=== PATIENT | female | born 1930 | race Caucasian/White ===

== ENCOUNTER → 2016-06-01 11:25 | Outpatient (CLI) | payer MEDICARE, BC ==
[2016-01-11 15:00] VITALS: BMI 26.4
[~2016-06-01 11:25] MED LIST: ASPIRIN EC81 M1 PO; CEFTIN500 MG PO; EZFE 200200 MG PO; FISH OIL 1,0001 CA1 PO; IPRAT-ALBUT 0.5-3 ML UPD; LEVOTHROID75 MCG PO; LISINOPRIL5 MG PO; LOPRESSOR50 MG PO; MEDROL DOSE PACK4 MG PO; OMNICEF300 MG PO; PLAVIX75 MG PO; PROTONIX40 MG PO; SINGULAIR10 MG PO; SLOW-MAG 64 MG64 MG PO; STOOL SOFTENER240 MG PO; VITAMIN B-12250 MC3 PO; VITAMIN B-1250 MG PO; VITAMIN D2000 UNIT PO; VITAMIN D3400 UNI1; ZANTAC150 MG PO; ZYRTEC10 M1 PO
== END | disposition home or self-care (01) ==
LOC: D.RAD 11:15
DX: J44.9 Chronic obstructive pulmonary disease, unspecified (principal)

== ENCOUNTER 2016-10-11 10:06 | Emergency (ER) | payer MEDICARE, BC ==
[2016-01-11 15:00] VITALS: BMI 26.4
== END 2016-10-11 13:22 | disposition home or self-care (01) ==
LOC: D.ER 10:06
DX: S09.90XA Unspecified injury of head, initial encounter (principal); W19.XXXA Unspecified fall, initial encounter; Y93.89 Activity, other specified; Y92.22 Religious institution as the place of occurrence of the external cause; I10 Essential (primary) hypertension

== ENCOUNTER 2016-12-17 22:21 | Inpatient (IN) | payer MEDICARE, BC ==
[~2016-12-17] VITALS: Ht 157.5 cm; Wt 62.6 kg
[2016-12-17 23:07] LABS: BASOPHILS 0.2 % (0-2); EOSINOPHILS 0.7 % (0-7); HEMATOCRIT 37.4 % (36.0-48.0); HEMOGLOBIN 11.8 g/dL (12-16); IMMATURE GRANULOCYTES 0.6 % (0-5); LYMPHOCYTES 17.5 % (15-50); MCH 30.8 pg (26.0-34.0); MCHC 31.6 g/dL (31.0-37.0); MCV 97.7 fL (80.0-100.0); MEAN PLATELET VOLUME 9.9 fL (7.4-10.4); MONOCYTES 7.5 % (2-11); NEUTROPHILS 73.5 % (40-80); PLATELET COUNT 202 10x3/uL (130-400); RBC 3.83 10x6/uL (4.00-5.40); RDW 14.1 % (11.5-14.5); WBC 10.4 10x3/uL (4.8-10.8)
[2016-12-17 23:24] LABS: ALBUMIN 3.5 g/dL (3.4-5.0); ALKALINE PHOSPHATASE 181 U/L (46-116); ALT (SGPT) 61 U/L (10-68); BILIRUBIN - TOTAL 0.28 mg/dL (0.2-1.3); CALC OSMOLALITY 285 mosm/kg (275-300); CALCIUM 8.9 mg/dL (8.5-10.1); CARBON DIOXIDE 29.9 mmol/L (21.0-32.0); CHLORIDE - SERUM 104 mmol/L (98-107); CREATININE - SERUM 1.1 mg/dL (0.6-1.3); GLUCOSE 134 mg/dL (74-106); POTASSIUM - SERUM 4.5 mmol/L (3.5-5.1); PROTEIN - SERUM 7.1 g/dL (6.4-8.2); SODIUM 142 mmol/L (136-145); UREA NITROGEN 16 mg/dL (7-18); eGFR NON AFRICAN AMERICAN 50 mL/min (90-120)
[2016-12-17 23:32] LABS: CREATINE KINASE 151 UL (21-215); PRO BNP 1157 pg/mL (0-450); TROPONIN-I < 0.017 ng/mL (0.000-0.060)
[2016-12-18] VITALS: BP 121/57
[2016-12-18 01:39] VITALS: BP 121/59; BMI 25.6
--- NOTE | 2016-12-18 01:47 | NUR ---
PT RECEIVED VIA STRETCHER WITH FAMILY AT BEDSIDE. PT IS AWAKE, ALERT, ORIENTED, [place], HEARING AIDS WITH DAUGHTER. PT DENIES ANY ACUTE NEEDS AT THIS TIME. PT TRANSFERRED FROM STRETCHER TO BED WITHOUT ANY DIFFICULTY. LINENS AND PILLOW PROVIDED TO SON WHO WILL BE STAYING WITH PT. PT AND SON HAVE BEEN ADVISED TO USE CALL LIGHT FOR ANY ASSISTANCE. CONTINUE TO MONITOR PT CLOSELY. BED LOW, CALL LIGHT IN REACH, SIDE RAILS X 2, HOB FLAT.
[2016-12-18 02:28] LABS: APPEARANCE CLEAR (CLEAR); BILIRUBIN NEGATIVE (NEGATIVE); COLOR YELLOW (YELLOW); GLUCOSE NEGATIVE (NEGATIVE); KETONE NEGATIVE (NEGATIVE); LEUKOCYTE ESTERASE NEGATIVE (NEGATIVE); NITRITE NEGATIVE (NEGATIVE); PROTEIN NEGATIVE (NEGATIVE); UROBILINOGEN NORMAL (NORMAL)
--- NOTE | 2016-12-18 03:14 | NUR ---
PT RESTING COMFORTABLY, EASILY ROUSABLE TO VERBAL STIMULI, SON IN CHAIR AT BEDSIDE. CONTINUE TO MONITOR PT CLOSELY. BED LOW, CALL LIGHT IN REACH, SIDE RAILS X 2, HOB FLAT.
[2016-12-18 04:00] VITALS: BP 83/36
[2016-12-18 08:00] VITALS: BP 105/46
--- NOTE | 2016-12-18 08:08 | NUR ---
AM ROUNDS - PT IS AWAKE IN BED. 2L O2 VIA NC. IV TO LEFT FA, NS AT 50CC/HR. PT HAS A YELLOW BAND ON. SIDE RAILS UP X2. BED AT LOWEST POSITION. NON SKID SOCKS ON. CALL DAN IN USE/REACH. WILL CONTINUE TO MONITOR
[2016-12-18 10:49] VITALS: Ht 157.5 cm; Wt 62.6 kg
[2016-12-18 12:00] VITALS: BP 111/68
[2016-12-18 16:00] VITALS: BP 113/52
[2016-12-19] VITALS (10 sets, daily range): BP systolic 112–144; BP diastolic 41–78
--- NOTE | 2016-12-19 00:12 | NUR ---
ASSESSMENT UNCHANGED. VSS, AFEBRILE. RESP EVEN UNLABORED. NO NEEDS VOICED. WILL CONT TO MONITOR.
[2016-12-19 06:22] LABS: BASOPHILS 0.1 % (0-2); EOSINOPHILS 0 % (0-7); HEMOGLOBIN 10.9 g/dL (12-16); IMMATURE GRANULOCYTES 0.3 % (0-5); LYMPHOCYTES 7.2 % (15-50); MCH 31.2 pg (26.0-34.0); MCHC 32.1 g/dL (31.0-37.0); MCV 97.4 fL (80.0-100.0); MEAN PLATELET VOLUME 10.4 fL (7.4-10.4); MONOCYTES 2.7 % (2-11); NEUTROPHILS 89.7 % (40-80); PLATELET COUNT 167 10x3/uL (130-400); RBC 3.49 10x6/uL (4.00-5.40); RDW 14.6 % (11.5-14.5)
[2016-12-19 06:26] LABS: WBC 15.2 10x3/uL (4.8-10.8)
[2016-12-19 06:40] LABS: ANION GAP 8.8 mmol/L (8-16); BILIRUBIN - TOTAL 0.37 mg/dL (0.2-1.3); CALCIUM 8.2 mg/dL (8.5-10.1); CARBON DIOXIDE 29.3 mmol/L (21.0-32.0); CREATININE - SERUM 1.1 mg/dL (0.6-1.3); MAGNESIUM - SERUM 1.6 mg/dL (1.8-2.4); PHOSPHOROUS 3.6 mg/dL (2.5-4.9); POTASSIUM - SERUM 5.1 mmol/L (3.5-5.1); PROTEIN - SERUM 5.8 g/dL (6.4-8.2)
[2016-12-19 06:43] LABS: ALBUMIN 2.4 g/dL (3.4-5.0)
--- NOTE | 2016-12-19 07:46 | NUR ---
IV RESITED TO RIGHT WRIST IV CATHETER TIP INTACT PT TOLERATED WELL
--- NOTE | 2016-12-19 08:04 | NUR ---
NPO FOR BRONCHOSCOPY TODAY. RIGHT FA IV WAS RE-SITED PER PREVIOUS SHIFT. ON 2L PER NC, BILATERAL WHEEZES HEARD IN LUNG LEON. COUDHING WITH CLEAR SPUTUM PER PATIENT. INSTRCUTED PATIENT TO CALL ME FOR ANY NEEDS OR ASSISTANCE UP TO RESTROOM. WILL CONTINUE TO MONITORL
--- NOTE | 2016-12-19 13:39 | NUR ---
TO BRONCH VIA BED. SALINE LOCK SITED TO LEFT AC WITH 22 G X 1 STICK.
--- NOTE | 2016-12-19 14:47 | NUR ---
RETURNS FROM BRONCH. NPO X 2 HOURS. HOB IS UP AT 30 DEGREES. WILL MONITOR.
--- NOTE | 2016-12-19 17:14 | NUR ---
AWAKE, EATING SUPPER. REPORTS TO HAVING NO PROBLEMS WITH SWALLOWING. ENCORAGED TO GO SLOW WITH IT AND TO BE CAREFUL.
--- NOTE | 2016-12-19 19:19 | NUR ---
PT IN BED DENIES NEEDS AT THIS TIME WILL CONTINUE TO MONITOR
[2016-12-20] VITALS (8 sets, daily range): BP systolic 104–149; BP diastolic 34–72
--- NOTE | 2016-12-20 07:20 | NUR ---
Reveived report. Pt alert and oriented with no c/o pain. Left arm infiltrated IV removed at pt request, cath tip intact. . No bleeding. Pt calls for assist, with unsteady. Pt has loud barking cough, non-productive.
--- NOTE | 2016-12-20 13:01 | NUR ---
Pt resting quietly resting in bed. Call light and personal belongings in reach.
--- NOTE | 2016-12-20 18:31 | NUR ---
Pt receiving updraft, lying quietly in bed, call light within reach, IV antibiotics infusing.
[2016-12-21] VITALS (10 sets, daily range): BP systolic 105–161; BP diastolic 50–89
--- NOTE | 2016-12-21 01:58 | NUR ---
RIGHT FOREARM INFILTRATED. REMOVED WITH CATHETER TIP INTACT. IV RESITED TO LEFT HAND. FLUIDS RESUMED
--- NOTE | 2016-12-21 07:30 | NUR ---
REPORT GIVEN. ROUNDS MADE. PATIENT IS SITTING ON SIDE OF BED. ALERT AND ORIENTED. NAD NOTED AT THIS TIME. 02 SAT 94% ON 2L/MIN VIA NC. PATIENT DENIES ANY COMPLAINTS OR NEEDS AT THIS TIME. L HAND IV INFUSING WITH NS AT 15ML/HR. BED LOW AND LOCKED. CALL LIGHT IN REACH. CPOC
--- NOTE | 2016-12-21 09:15 | NUR ---
MORNING MEDICATIONS GIVEN, WITH NO ISSUES. DENIES ANY NEEDS. CPOC
--- NOTE | 2016-12-21 11:07 | NUR ---
PATIENT GOT OUT OF SHOWER, BACK IN BED. PATIENT IS COMPLAINING THAT FEET ARE SWOLLEN. PALP PEDAL PULSES, WITH GENERALIZED SWELING NOTED. ELEVATED FEET. WILL MONITOR
[2016-12-21 15:15] LABS: SPECIMEN SOURCE Urine (())
--- NOTE | 2016-12-21 15:37 | NUR ---
PATIENT STATES THE STEROIDS ARE MAKING HER CLIMB THE PETE AND TALK 90 TO NOTHING. STATES SHE TAKES ATIVAN 0.5MG AT HOME TO HELP HER SLEEP, REQUESTING THAT I CALL DR SHEEHAN AND ASK IF SHE CAN HAVE FOR TONIGHT BECAUSE SHE HAS NOT BEEN ABLE TO SLEEP. DR SHEEHAN OFFICE CALLED. LEFT MESSAGE WAITING JOINT SEALER BACK. CPOC
--- NOTE | 2016-12-21 18:09 | NUR ---
PATIENT SITTING ON SIDE O F BED, DENIES ANY NEEDS AT THIS TIME. WILL CONT OT MONITOR. CPOC
[2016-12-22] VITALS (7 sets, daily range): BP systolic 115–167; BP diastolic 56–85
[2016-12-22 04:46] LABS: BASOPHILS 0.1 % (0-2); EOSINOPHILS 0 % (0-7); HEMATOCRIT 33.3 % (36.0-48.0); HEMOGLOBIN 10.7 g/dL (12-16); LYMPHOCYTES 14.3 % (15-50); MCH 30.8 pg (26.0-34.0); MCHC 32.1 g/dL (31.0-37.0); MEAN PLATELET VOLUME 10.3 fL (7.4-10.4); NEUTROPHILS 76.6 % (40-80); PLATELET COUNT 200 10x3/uL (130-400); RBC 3.47 10x6/uL (4.00-5.40); RDW 14.4 % (11.5-14.5); WBC 10.7 10x3/uL (4.8-10.8)
[2016-12-22 05:04] LABS: ALBUMIN 2.7 g/dL (3.4-5.0); ANION GAP 10.8 mmol/L (8-16); BILIRUBIN - TOTAL 0.19 mg/dL (0.2-1.3); CALCIUM 8.4 mg/dL (8.5-10.1); CARBON DIOXIDE 30.1 mmol/L (21.0-32.0); CREATININE - SERUM 1.2 mg/dL (0.6-1.3); POTASSIUM - SERUM 4.9 mmol/L (3.5-5.1); PROTEIN - SERUM 5.3 g/dL (6.4-8.2)
--- NOTE | 2016-12-22 07:33 | NUR ---
RECIEVED REPORT ON PATIENT, PATIENT IS SLEEPING AT THIS TIME, NAD NOTED AT THIS TIME. HAS A L HAND IV WITH NS AT 15ML/HR. PATIENT BED IS LOW AND LOCKED. CALL LIGHT IN REACH. WILL CONT TO MONITOR. CPOC
--- NOTE | 2016-12-22 09:00 | NUR ---
MORNING MEDS GIVEN, NO ISSUES. PATIENT DENIES ANY PAIN. CPOC
--- NOTE | 2016-12-22 11:30 | NUR ---
PATIENT SITTING ON SIDE OF BED EATING LUNCH. DENIES ANY PAIN OR NEEDS. CPOC
--- NOTE | 2016-12-22 13:06 | NUR ---
PATIENT SITTING ON SIDE OF BED, DENIES ANY NEEDS. CPOC
--- NOTE | 2016-12-22 15:51 | NUR ---
PATIENT ASSISTED TO RESTROOM, PATIENT BACK IN BED. DENIES ANY NEEDS. CPOC
--- NOTE | 2016-12-22 18:17 | NUR ---
PATIENT SITTING ON SIDE OF BED, DENIES ANY NEEDS AT THIS TIME. EATING DINNER. WILL CONT TO MONITOR
[2016-12-22 19:11] LABS: ACID FAST SMEAR Negative (()); AFB SPECIMEN PROCESSING Concentration (())
--- NOTE | 2016-12-22 19:46 | NUR ---
Patient is resting in bed watching tv, alert with call light in reach. Denies any pain or needs at this time.
--- NOTE | 2016-12-22 23:32 | NUR ---
RECEIVED REPORT FROM DAY NURSE.
--- NOTE | 2016-12-23 00:16 | NUR ---
PT ASLEEP ON ROUNDS, ROUSED UP TO CALLING OF HER NAME. ORIENTED/ALERT. IVF NS @ 50ML/HR INFUSING TO LFA. IV ABT NOW UP. SR UP X 2, BED LOW. BED ALARM ACTIVATED. MONITOR AND CPOC.
[2016-12-23 03:35] LABS: BASOPHILS 0.4 % (0-2); EOSINOPHILS 0 % (0-7); HEMATOCRIT 32.2 % (36.0-48.0); HEMOGLOBIN 10.4 g/dL (12-16); IMMATURE GRANULOCYTES 6.6 % (0-5); LYMPHOCYTES 18.1 % (15-50); MCHC 32.3 g/dL (31.0-37.0); MCV 95.8 fL (80.0-100.0); MEAN PLATELET VOLUME 10.1 fL (7.4-10.4); MONOCYTES 8.2 % (2-11); NEUTROPHILS 66.7 % (40-80); PLATELET COUNT 190 10x3/uL (130-400); RBC 3.36 10x6/uL (4.00-5.40); RDW 14.5 % (11.5-14.5); WBC 8.3 10x3/uL (4.8-10.8)
[2016-12-23 03:54] LABS: ALBUMIN 2.4 g/dL (3.4-5.0); ANION GAP 11.8 mmol/L (8-16); BILIRUBIN - TOTAL 0.21 mg/dL (0.2-1.3); CALCIUM 8.2 mg/dL (8.5-10.1); CREATININE - SERUM 1.2 mg/dL (0.6-1.3); MAGNESIUM - SERUM 1.6 mg/dL (1.8-2.4); PHOSPHOROUS 3.5 mg/dL (2.5-4.9); POTASSIUM - SERUM 4.8 mmol/L (3.5-5.1); PROTEIN - SERUM 5.4 g/dL (6.4-8.2)
[2016-12-23 04:00] VITALS: BP 144/63
--- NOTE | 2016-12-23 06:32 | NUR ---
PT'S IV TO LEFT WRIST FLUSHES WELL, BUT IS SOMETIMES IS UNCOMFORTABLE TO HER. ATTEMPTED MULTIPLE TIMES TO RESITE IV AND ALL ATTEMPTS WERE UNSUCCESSFUL. INFORMED PT THAT WHEN VASCULAR NURSE GETS HERE THIS AM THEN SHE CAN ATTEMPT TO RESITE PATIENT. UNTIL THEN, LEFT WRIST IS USABLE AND IV ABT IS BEING INFUSED AT THIS TIME.
--- NOTE | 2016-12-23 07:59 | NUR ---
PT AWAKE IN BED. O2 AT 2L VIA NC. IV TO LEFT WRIST, NS AT 30CC.HR. NON SKID SOCKS ON. YELLOW BAND ON. BED AT LOWEST POSITION. SIDE RAILS UP X2. CALL DAN IN USE/REACH. NO NEEDS AT THIS TIME. WILL CONTINUE TO MONITOR
[2016-12-23 08:00] VITALS: BP 105/69
[2016-12-23 12:00] VITALS: BP 142/80
--- NOTE | 2016-12-23 14:06 | NUR ---
22G IV PL[address] IN UNDERSIDE OF PT'S LEFT WRIST BY RACHEL. IV TO TOP OF LEFT WRIST WAS CAUSING PAIN. NO REDNESS. RESISTANCE MET WHEN FLUSHING. WILL D/C. WILL CONTINUE TO MONITOR
[2016-12-23 14:20] LABS: FUNGUS STAIN Final report (())
[2016-12-23 16:00] VITALS: BP 147/64
--- NOTE | 2016-12-23 17:20 | NUR ---
PT SITTING ON SIDE OF BED. DINNER FINNISHED. NO NEEDS AT THIS TIME. WILL CONTINUE TO MONITOR
--- NOTE | 2016-12-23 19:39 | NUR ---
ALERT/AWAKE SITTING ON SIDE OF BED. REQUESTED ASSISTANCE TO BATHROOM TO VOID. ASSESSMENTS COMPLETED. BED IS LOW WITH SR UP X2. ORIENTED TO CL FOR ANY OTHER NEEDS OR DISCOMFORTS.
[2016-12-23 20:15] VITALS: BP 136/63
[2016-12-23 20:27] VITALS: BP 110/68; BP 136/63
[2016-12-24] VITALS: BP 134/66
[2016-12-24 04:00] VITALS: BP 151/67
[2016-12-24 04:30] LABS: BASOPHILS 0.3 % (0-2); EOSINOPHILS 0.1 % (0-7); HEMATOCRIT 32.8 % (36.0-48.0); HEMOGLOBIN 10.5 g/dL (12-16); LYMPHOCYTES 18.2 % (15-50); MCH 30.9 pg (26.0-34.0); MCV 96.5 fL (80.0-100.0); MEAN PLATELET VOLUME 9.9 fL (7.4-10.4); MONOCYTES 7.3 % (2-11); NEUTROPHILS 66.1 % (40-80); PLATELET COUNT 218 10x3/uL (130-400); RDW 14.6 % (11.5-14.5); WBC 9.2 10x3/uL (4.8-10.8)
[2016-12-24 04:38] LABS: ANION GAP 7.2 mmol/L (8-16); CALCIUM 8.2 mg/dL (8.5-10.1); CARBON DIOXIDE 31.1 mmol/L (21.0-32.0); CREATININE - SERUM 1.2 mg/dL (0.6-1.3); POTASSIUM - SERUM 5.3 mmol/L (3.5-5.1)
--- NOTE | 2016-12-24 06:20 | NUR ---
ADMIN SCHED MEDS. RT PRESENT TO GIVE UPDRAFT TX. DENIES ANY NEEDS.
[2016-12-24] MEDS ORDERED: BROVANA15 MCG/2 M INH (06:57)
[2016-12-24] MEDS ORDERED: BENZONATATE200 MG PO (06:58)
[2016-12-24] MEDS ORDERED: PULMICORT0.5 MG/21 UPD (06:58)
[2016-12-24] MEDS ORDERED: ATIVAN0.5 MG PO (06:58)
[2016-12-24] MEDS ORDERED: DOXYCYCLINE HY100 M2 PO (06:59)
[2016-12-24] MEDS ORDERED: OMNICEF300 MG PO (07:00)
[2016-12-24] MEDS ORDERED: PREDNISONE10 MG PO (07:01)
[2016-12-24 08:00] VITALS: BP 158/66
--- NOTE | 2016-12-24 08:14 | NUR ---
AM ROUNDS - PT SITTING ON SIDE OF BED. IV TO RIGHT WRIST, NS @ 50CC/HR. HARD OF HEARING. 2L O2 VIA NC. UP WITH ONE PERSON ASSIST. A&O. BED AT LOWEST POSITION, CALL DAN IN USE/REACH, SIDE RAILS UP X2. NO NEEDS AT THIS TIME. WILL CONTINUE TO MONITOR
--- NOTE | 2016-12-24 09:53 | NUR ---
ATIVAN 0.5MG #10 AND BUDESONIDE CALLED TO [facility]. SPOKE WITH ELIAJH/PHARMACIST
--- NOTE | 2016-12-24 11:32 | NUR ---
Patient Name: MINDI MONTES Admission Status: ER Accout number: [id number] Admission Date: 12-18-2016 : 1930 Admission Diagnosis:COUGH Attending: Hieu Sheehan Current LOS: 6 Anticipated DC Date: 12-24-2016 Planned Disposition: Home with Home Health Primary Insurance: MEDICARE A & B PLANNED EXTERNAL PROVIDER: [facility] Discharge Planning Comments: * Is the patient Alert and Oriented? Yes 0 * How many steps to enter\exit or inside your home? NONE 0 * PCP DR. SHEEHAN 0 * Pharmacy [facility] 0 * Preadmission Environment Home Alone 0 * ADLs Independent 0 * Equipment [facility] Oxygen Walker 0 * Other [facility] * List name and contact numbers for known caregivers / representatives who currently or will assist patient after discharge: CARMEN MONTES, NEPHEW, 0 CM MET WITH PT IN ROOM TO DISCUSS DISCHARGE PLANNING AND NEEDS. PT REPORTS LIVING AT HOME INDEPENDENTLY AND ALONE. PT REPORTS HAVING NEBULIZER, HOME OXYGEN FOR NIGHTTIME USE, CANE AND WALKER FROM [facility]. PT HAS HAD [facility] IN THE PAST BUT HAS NO OUTSIDE SERVICES ASSISTING IN THE HOME NOW. CM DISCUSSED AVAILABILITY OF HOME HEALTH, REHAB SERVICES AND MEDICAL EQUIPMENT. PT WANTS HOME HEALTH WITH [facility], CHOICE SIGNED; PT REPORTS HER NEPHEW WILL PICK HER UP FOR DISCHARGE HOME. IMPORTANT MESSAGE FROM MEDICARE PROVIDED AND EXPLAINED. CM RECEIVED HOME HEALTH ORDERS, CALLED [facility], , SPOKE TO TIMOTHY WHO RECEIVED AND ACCEPTED HOME HEALTH REFERRAL. CM FAXED REFERRAL TO [facility] AT [phone]. PT NOTIFIED, DENIES FURHTER NEEDS. KARATE BLACK BELT NURSE NOTIFIED. Flooring Grader: Sven Field
--- NOTE | 2016-12-24 11:34 | NUR ---
D/C - VERBAL AND WRITEN D/C INTRUCTIONS GIVEN TO PT. IV TO LEFT WRIST D/C, CATH TIP INTACT, 2X2 DRESSING APPLIED AND SECURED WITH TAPE. PT TOLERATED WELL. PT LEFT FLOOR VIA WHEELCHAIR BY VOLUNTEER. WILL D/C
[2016-12-28 12:11] LABS: FUNGUS MYCOLOGY CULTURE Preliminary report (())
--- NOTE | 2016-12-29 16:50 | OP ---
PATIENT NAME: MINDI MONTES MEDICAL RECORD: [id number] :[birth year] LOCATION:D. D.2103 ADMISSION DATE:12/18/16 SURGEON: GILLIAN CORONADO MD DATE OF OPERATION: 12/19/2016 PROCEDURE: Fiberoptic bronchoscopy. INDICATION: Ms. Montes is an 86-year-old female who was admitted with pneumonia. CT scan of the chest showed tree-in-bud appearance. Fiberoptic bronchoscopy was carried out to inspect the airway and get specimen for culture and sensitivity. MONITORING: EKG, pulse, blood pressure and SpO2 were monitored throughout the procedure. MEDICATIONS: Atropine 0.6 mg IM, fentanyl 50 mcg IV in divided doses and Versed 3 mg IV in divided doses. PROCEDURE IN DETAIL: The fiberoptic bronchoscope was easily passed through the mouth. The epiglottis was normal. The vocal cords were normal, moving equally on phonation. The main trachea was normal. The ashely was sharp. The left main bronchus, the subsegment to the left upper lobe and left lower lobe within normal limits. There were white yellowish secretions bilaterally, right more than the left. The right main bronchus was normal. The subsegment to the right upper lobe, right middle lobe, right lower lobe within normal range. Endobronchial lesion was seen bilaterally. Specimen washing was obtained and sent for routine culture and sensitivity, AFB, fungus and cytology. Overall, the patient tolerated the procedure very well. TRANSINT:[id number] Voice Confirmation ID: [id number] DOCUMENT ID: [id number] GILLIAN CORONADO MD at 1650 CC: AMAN SHEEHAN DO [id number] DICTATION DATE: 12/19/16 1446 UPPER LEATHER SORTER: 12/20/16 0036 DIS IN 12/24/16 [facility] [address] [facility] [address]
--- NOTE | 2016-12-29 16:50 | CN ---
PATIENT NAME:MINDI BOLANOS MEDICAL RECORD: [id number] : [birth year] LOCATION:. D.2103 ADMIT DATE: 12/18/16 ACCOUNT: [id number] CONSULTING PHYSICIAN: GILLIAN CORONADO MD REFERRING PHYSICIAN: HIEU SHEEHAN DO DATE OF CONSULTATION: 12/18/2016 CONSULT REQUESTING PHYSICIAN: Hieu Sheehan MD. REASON FOR CONSULTATION: Bilateral pneumonia and acute exacerbation of COPD. HISTORY OF PRESENT ILLNESS: Ms. Bolanos is an 86-year-old female, very well known to me. According to patient, she is sick for the last few days. Yesterday, she was sweating, she has fever and chill, seen by Dr. Sheehan, admitted to the hospital. She has cough, which is productive with white yellow color sputum production. She also has fever of 102 in the ER. REVIEW OF SYSTEMS: As in history of present illness. PAST MEDICAL HISTORY: 1. Chronic obstructive pulmonary disease. 2. Asthma. 3. Hypertension. 4. Hypercholesterolemia. 5. Hypothyroidism. PAST SURGICAL HISTORY: 1. She has a cardiac catheterization and stent placement. 2. Rotator cuff surgery. 3. Cholecystectomy. ALLERGIES: SHE IS ALLERGIC TO BIAXIN, CECLOR, ERYTHROMYCIN, ZITHROMAX, LEVAQUIN AND PENICILLIN, QUININE, SULFA AND ZOCOR. PERSONAL AND SOCIAL HISTORY: The patient is now nonsmoker and nondrinker. FAMILY HISTORY: Noncontributory. PHYSICAL EXAMINATION: GENERAL: Now, the patient is lying comfortably in bed. She is not in acute distress. VITAL SIGNS: The blood pressure is 105/46, pulse is 77, respirations 19, temperature 99.7 and SpO2 of 95% on 2 liters nasal cannula. HEENT: Conjunctivae is pink. Sclerae nonicteric. NECK: Supple. There is no JVD. CHEST: There are bilateral crackles . There is wheezing. HEART: Rate and rhythm is regular. Normal sound. ABDOMEN: Soft, bowel sounds present. No hepatosplenomegaly. RECTAL: Deferred. EXTREMITIES: No cyanosis, no clubbing and no pedal edema. SKIN: Warm, normal turgor. CENTRAL NERVOUS SYSTEM: The patient is awake and alert. There are no obvious cranial nerve abnormality. The gait was not tested. IMAGING: CT scan of the chest: There is peribronchovascular consolidative CONSULT REPORT [id number] MINDI BOLANOS changes in the middle lobe and right lower lobe. There are also tree-in-bud opacities. LABORATORY DATA: CBC: WBC is 10.4, hemoglobin 11.8, hematocrit 37.4 and the platelet count 202. Chemistry: Sodium 142, potassium 4.5, BUN is 16, creatinine 1.1. ABG: The pH is 7.38, pCO2 is 44.4 and the pO2 is 65. IMPRESSION: 1. Acute exacerbation of chronic obstructive pulmonary disease. 2. Acute hypoxic respiratory failure. 3. Pneumonia, multilobar, most likely community-acquired pneumonia, possible atypical pneumonia. 4. Acute cough. 5. Asthma-chronic obstructive pulmonary disease overlap syndrome. RECOMMENDATION: Antibiotic per Dr. Ho, methylprednisolone IV, Brovana, budesonide nebulizer, Xopenex and ipratropium nebulizer. Supplemental oxygen is required. We will proceed with fiberoptic bronchoscopy tomorrow to obtain specimens for culture and sensitivity, to rule out fungal and MAC. Dr. Sheehan thank you for involving me in the care of Ms. Bolanos. TRANSINT:[id number] Voice Confirmation ID: [id number] DOCUMENT ID: [id number] GILLIAN CORONADO MD at 1650 CC: HIEU SHEEHAN DO [id number] DICTATION DATE: 12/18/16 1545 INTEGRITY SPECIALIST: 12/18/162 DIS IN 12/24/16 [facility] [address] [place] [address]
== END 2016-12-24 11:38 | disposition home health service (06) | DRG 189 ==
LOC: D.ER 22:21 → D.M2 12-18 00:33
PROVIDERS: Emergency Medicine; Internal Medicine Pulmonary Disease; Nurse Practitioner Acute Care; Student in an Organized Health Care Education/Training Program; ADMIT Family Medicine
PROC: 0BB38ZX Excision of Right Main Bronchus, Via Natural or Artificial Opening Endoscopic, Diagnostic (ICD-10-PCS; 2016-12-19)
PROC: 0BB78ZX Excision of Left Main Bronchus, Via Natural or Artificial Opening Endoscopic, Diagnostic (ICD-10-PCS; principal; 2016-12-19 13:30)
DX: J96.01 Acute respiratory failure with hypoxia (principal); J18.9 Pneumonia, unspecified organism; J44.0 Chronic obstructive pulmonary disease with (acute) lower respiratory infection; J98.11 Atelectasis; J44.1 Chronic obstructive pulmonary disease with (acute) exacerbation; I10 Essential (primary) hypertension; I25.10 Atherosclerotic heart disease of native coronary artery without angina pectoris; Z95.5 Presence of coronary angioplasty implant and graft; K21.9 Gastro-esophageal reflux disease without esophagitis; E03.9 Hypothyroidism, unspecified; F09 Unspecified mental disorder due to known physiological condition; T38.0X5A Adverse effect of glucocorticoids and synthetic analogues, initial encounter

== ENCOUNTER → 2017-02-26 13:45 | Outpatient (CLI) | payer MEDICARE, BC ==
[2016-12-18 10:49] VITALS: BMI 25.6
[~2017-02-26 13:45] MED LIST changes: +ATIVAN0.5 MG PO; +BENZONATATE200 MG PO; +BROVANA15 MCG/2 M INH; +DOXYCYCLINE HY100 M2 PO; +LEVAQUIN500 MG PO; -LOPRESSOR50 MG PO; +METOPROLOL TART25 MG PO; +NYSTATIN ORAL SU5 ML PO; +PREDNISONE10 MG PO; +PULMICORT0.5 MG/21 UPD
== END | disposition home or self-care (01) ==
LOC: D.US 02-25 13:00
DX: M79.604 Pain in right leg (principal)

== ENCOUNTER 2017-04-13 15:14 | Inpatient (IN) | payer MEDICARE, BC ==
[~2017-04-13] VITALS: Ht 154.9 cm; Wt 62.1 kg
--- NOTE | ~2017-04-13 | HP ---
PATIENT: MINDI MONTES MEDICAL RECORD: [id number] ACCOUNT: [id number] LOCATION:D.MS [id number] : [birth year] ADMISSION DATE: 04/13/17 HISTORY AND PHYSICAL EXAMINATION HISTORY OF PRESENT ILLNESS: She is an 86-year-old female who came to the office with 2-3 days of productive yellowish sputum, fever, temperature of 101.8. She was found to have a left lower lobe pneumonia with a white count of 16,000. She is admitted for further evaluation and treatment. She has a history of asthma and COPD, follows with pulmonary, Dr. Moraes. She also has a history of hypertension, hyperlipidemia, hypothyroidism, HOME MEDICATIONS: Include aspirin, Brovana, budesonide, DuoNeb updrafts, levothyroxine, metoprolol, Ativan p.r.n., Carafate, Singulair, Prilosec, and vitamin D. ALLERGIES: She has multiple drug allergies including ERYTHROMYCIN, PENICILLIN, CECLOR, BIAXIN, LEVAQUIN. She has, however, been able to tolerate Levaquin IV in the past. SOCIAL HISTORY: Does not smoke, drink alcohol, or drugs. She currently lives alone. FAMILY HISTORY: Father with heart disease. PAST SURGICAL HISTORY: She has had coronary stents placed, which had arterial blockage in her leg repair, rotator cuff surgery, and gallbladder removal. REVIEW OF SYSTEMS: CONSTITUTIONAL: She has had fever, some chills. HEENT: Denies any visual or auditory changes. No sore throat. CARDIOPULMONARY: Shortness of breath, cough with some productive sputum. She has had some left-sided chest pain last night with deep inspiration. She has been short of breath. GASTROINTESTINAL: Denies any nausea, vomiting, diarrhea, melena. GENITOURINARY: No hematuria or dysuria. MUSCULOSKELETAL: Some achiness diffusely, but no joint swelling or erythema. PHYSICAL EXAMINATION: VITAL SIGNS: She had a temperature of 101.8, O2 sat 86% on room air, pulse 100, blood pressure 160/72. Weight of 144. HEENT: PERRLA, EOMI. Pharynx was clear. NECK: Supple, no JVD. HEART: S1 and S2. No murmurs or rubs. LUNGS: Had some decreased breath sounds left base with some expiratory rhonchi. ABDOMEN: Soft, nontender, nondistended with normoactive bowel sounds. EXTREMITIES: Without clubbing, cyanosis, or edema. NEUROLOGIC: Grossly intact. LABORATORY DATA: White count was 16,000 with an O2 sat of 86%. Left lower lobe infiltrate on x-ray. Influenza A and B test was negative. ASSESSMENT AND PLAN: Pneumonia, community acquired. I will start Levaquin and vancomycin for broad-spectrum coverage. Blood cultures will be obtained as well as stat labs, O2 support, nebulizers, pulmonary consultation. HISTORY AND PHYSICAL [id number] MINDI MONTES TRANSINT:[id number] Voice Confirmation ID: [id number] DOCUMENT ID: [id number] AMAN SHEEHAN DO at 1648 CC: [id number] DICTATION DATE: 04/13/17 1449 SAP BW ARCHITECT: 04/13/17 1622 ADM IN [facility] [address] [place] [address]
[~2017-04-13 15:14] MED LIST changes: -LEVAQUIN500 MG PO; -NYSTATIN ORAL SU5 ML PO
[2017-04-13 17:51] LABS: BASOPHILS 0.1 % (0-2); EOSINOPHILS 0.1 % (0-7); HEMATOCRIT 32.4 % (36.0-48.0); HEMOGLOBIN 10.5 g/dL (12-16); IMMATURE GRANULOCYTES 0.5 % (0-5); LYMPHOCYTES 10.4 % (15-50); MCH 30.8 pg (26.0-34.0); MCHC 32.4 g/dL (31.0-37.0); MEAN PLATELET VOLUME 9.9 fL (7.4-10.4); NEUTROPHILS 78.9 % (40-80); PLATELET COUNT 155 10x3/uL (130-400); RBC 3.41 10x6/uL (4.00-5.40); RDW 13.8 % (11.5-14.5); WBC 15.4 10x3/uL (4.8-10.8)
[2017-04-13 18:01] LABS: ALBUMIN 2.8 g/dL (3.4-5.0); ANION GAP 11.9 mmol/L (8-16); BILIRUBIN - TOTAL 0.92 mg/dL (0.2-1.3); CALCIUM 8.9 mg/dL (8.5-10.1); CARBON DIOXIDE 28.2 mmol/L (21.0-32.0); CREATININE - SERUM 1.5 mg/dL (0.6-1.3); POTASSIUM - SERUM 4.1 mmol/L (3.5-5.1); PROTEIN - SERUM 6.2 g/dL (6.4-8.2)
[2017-04-13 20:00] VITALS: BP 134/55
[2017-04-14] VITALS: BP 112/59
[2017-04-14 03:26] VITALS: BMI 26.0
[2017-04-14 04:00] VITALS: BP 100/49
[2017-04-14 06:11] LABS: BASOPHILS 0.1 % (0-2); EOSINOPHILS 0 % (0-7); HEMOGLOBIN 10.3 g/dL (12-16); IMMATURE GRANULOCYTES 0.4 % (0-5); LYMPHOCYTES 4.9 % (15-50); MCH 30.8 pg (26.0-34.0); MCHC 32.2 g/dL (31.0-37.0); MCV 95.8 fL (80.0-100.0); MEAN PLATELET VOLUME 10.5 fL (7.4-10.4); MONOCYTES 5.5 % (2-11); NEUTROPHILS 89.1 % (40-80); PLATELET COUNT 162 10x3/uL (130-400); RBC 3.34 10x6/uL (4.00-5.40); RDW 13.9 % (11.5-14.5)
[2017-04-14 06:36] LABS: ALBUMIN 2.4 g/dL (3.4-5.0); ANION GAP 12.3 mmol/L (8-16); BILIRUBIN - TOTAL 0.76 mg/dL (0.2-1.3); CALCIUM 8.6 mg/dL (8.5-10.1); CARBON DIOXIDE 27.1 mmol/L (21.0-32.0); CREATININE - SERUM 1.6 mg/dL (0.6-1.3); MAGNESIUM - SERUM 1.7 mg/dL (1.8-2.4); PHOSPHOROUS 3.3 mg/dL (2.5-4.9); POTASSIUM - SERUM 4.4 mmol/L (3.5-5.1); PROTEIN - SERUM 5.8 g/dL (6.4-8.2)
[2017-04-14 08:07] VITALS: BP 108/42
[2017-04-14 12:43] VITALS: BP 102/55
[2017-04-14 15:21] VITALS: BMI 25.8
[2017-04-14 16:08] VITALS: BP 115/50
[2017-04-15] VITALS: BP 140/56
[2017-04-15 04:00] VITALS: BP 148/76
[2017-04-15 05:22] LABS: BASOPHILS 0.1 % (0-2); EOSINOPHILS 0 % (0-7); HEMATOCRIT 30.3 % (36.0-48.0); HEMOGLOBIN 10.1 g/dL (12-16); IMMATURE GRANULOCYTES 0.7 % (0-5); LYMPHOCYTES 4.5 % (15-50); MCH 30.8 pg (26.0-34.0); MCHC 33.3 g/dL (31.0-37.0); MEAN PLATELET VOLUME 10.3 fL (7.4-10.4); MONOCYTES 5.8 % (2-11); NEUTROPHILS 88.9 % (40-80); RBC 3.28 10x6/uL (4.00-5.40); RDW 13.5 % (11.5-14.5); WBC 16.2 10x3/uL (4.8-10.8)
[2017-04-15 05:43] LABS: MCV 92.4 fL (80.0-100.0); PLATELET COUNT 205 10x3/uL (130-400)
[2017-04-15 05:44] LABS: ALBUMIN 2.7 g/dL (3.4-5.0); ANION GAP 15.3 mmol/L (8-16); BILIRUBIN - TOTAL 0.42 mg/dL (0.2-1.3); CALCIUM 8.5 mg/dL (8.5-10.1); CARBON DIOXIDE 23.2 mmol/L (21.0-32.0); CREATININE - SERUM 1.6 mg/dL (0.6-1.3); MAGNESIUM - SERUM 1.7 mg/dL (1.8-2.4); PHOSPHOROUS 3.2 mg/dL (2.5-4.9); PROTEIN - SERUM 6.2 g/dL (6.4-8.2)
[2017-04-15 05:55] LABS: POTASSIUM - SERUM 3.5 mmol/L (3.5-5.1)
[2017-04-15 08:16] LABS: IMMUNOGLOBULIN E 13 IU/mL (0-100)
[2017-04-15 08:35] VITALS: BP 146/71
[2017-04-15 09:17] LABS: IMMUNOGLOBULIN A 108 mg/dL (64-422); IMMUNOGLOBULIN G 590 mg/dL (700-1600)
[2017-04-15 13:48] VITALS: BP 140/72
[2017-04-15 16:04] VITALS: BP 127/74
[2017-04-15 21:49] VITALS: Ht 154.9 cm; Wt 62.1 kg
[2017-04-16 04:14] LABS: BASOPHILS 0.2 % (0-2); EOSINOPHILS 0 % (0-7); HEMATOCRIT 30.4 % (36.0-48.0); HEMOGLOBIN 9.9 g/dL (12-16); IMMATURE GRANULOCYTES 5.5 % (0-5); MCH 30.2 pg (26.0-34.0); MCHC 32.6 g/dL (31.0-37.0); MCV 92.7 fL (80.0-100.0); MEAN PLATELET VOLUME 9.6 fL (7.4-10.4); NEUTROPHILS 82.3 % (40-80); PLATELET COUNT 208 10x3/uL (130-400); RBC 3.28 10x6/uL (4.00-5.40); RDW 13.7 % (11.5-14.5); WBC 13.9 10x3/uL (4.8-10.8)
[2017-04-16 05:08] LABS: ALBUMIN 2.5 g/dL (3.4-5.0); ANION GAP 14.7 mmol/L (8-16); BILIRUBIN - TOTAL 0.4 mg/dL (0.2-1.3); CALCIUM 8.6 mg/dL (8.5-10.1); CARBON DIOXIDE 22.4 mmol/L (21.0-32.0); CREATININE - SERUM 1.4 mg/dL (0.6-1.3); MAGNESIUM - SERUM 1.8 mg/dL (1.8-2.4); PHOSPHOROUS 2.8 mg/dL (2.5-4.9); POTASSIUM - SERUM 4.1 mmol/L (3.5-5.1); PROTEIN - SERUM 5.9 g/dL (6.4-8.2)
[2017-04-16 08:17] VITALS: BP 136/76
[2017-04-16 12:45] VITALS: BP 126/103
[2017-04-16 16:51] VITALS: BP 138/74
[2017-04-16 20:00] VITALS: BP 140/72
[2017-04-17 04:00] VITALS: BP 157/79
[2017-04-17 04:46] LABS: HEMATOCRIT 29.7 % (36.0-48.0); HEMOGLOBIN 9.7 g/dL (12-16); MCH 30.5 pg (26.0-34.0); MCHC 32.7 g/dL (31.0-37.0); MCV 93.4 fL (80.0-100.0); MEAN PLATELET VOLUME 9.4 fL (7.4-10.4); PLATELET COUNT 214 10x3/uL (130-400); RBC 3.18 10x6/uL (4.00-5.40); WBC 12.9 10x3/uL (4.8-10.8)
[2017-04-17 05:06] LABS: ALBUMIN 2.4 g/dL (3.4-5.0); ANION GAP 12.6 mmol/L (8-16); BILIRUBIN - TOTAL 0.27 mg/dL (0.2-1.3); CALCIUM 8.8 mg/dL (8.5-10.1); CREATININE - SERUM 1.3 mg/dL (0.6-1.3); POTASSIUM - SERUM 4.6 mmol/L (3.5-5.1); PROTEIN - SERUM 5.4 g/dL (6.4-8.2)
[2017-04-17 05:25] LABS: BASOPHILS 1 % (0-2); EOSINOPHILS 3 % (0-7); LYMPHOCYTES 4 % (15-50); MONOCYTES 5 % (2-11); NEUTROPHILS 83 % (40-80); PLATELET ESTIMATE NORMAL
[2017-04-17 08:16] VITALS: BP 146/76
[2017-04-17 12:11] VITALS: BP 153/75
[2017-04-17 15:26] VITALS: BP 133/64
[2017-04-17 20:00] VITALS: BP 132/58
[2017-04-18] VITALS: BP 125/55
[2017-04-18 04:00] VITALS: BP 133/60
[2017-04-18 04:50] LABS: EOSINOPHILS 0.1 % (0-7); HEMATOCRIT 30.4 % (36.0-48.0); HEMOGLOBIN 9.7 g/dL (12-16); IMMATURE GRANULOCYTES 21.2 % (0-5); MCH 30.3 pg (26.0-34.0); MCHC 31.9 g/dL (31.0-37.0); MEAN PLATELET VOLUME 9.5 fL (7.4-10.4); MONOCYTES 12.8 % (2-11); NEUTROPHILS 52.9 % (40-80); PLATELET COUNT 239 10x3/uL (130-400); RDW 14.6 % (11.5-14.5)
[2017-04-18 05:10] LABS: ANION GAP 12.5 mmol/L (8-16); CALCIUM 8.4 mg/dL (8.5-10.1); CREATININE - SERUM 1.2 mg/dL (0.6-1.3); POTASSIUM - SERUM 4.5 mmol/L (3.5-5.1)
[2017-04-18 08:15] VITALS: BP 141/56
[2017-04-18 12:43] VITALS: BP 131/60
[2017-04-18 16:02] VITALS: BP 138/63
[2017-04-18 20:00] VITALS: BP 124/49
[2017-04-19 04:00] VITALS: BP 138/71
[2017-04-19 04:36] LABS: EOSINOPHILS 0.5 % (0-7); HEMATOCRIT 30.1 % (36.0-48.0); HEMOGLOBIN 9.6 g/dL (12-16); IMMATURE GRANULOCYTES 22.3 % (0-5); LYMPHOCYTES 13.4 % (15-50); MCH 30.6 pg (26.0-34.0); MCHC 31.9 g/dL (31.0-37.0); MCV 95.9 fL (80.0-100.0); MEAN PLATELET VOLUME 9.3 fL (7.4-10.4); MONOCYTES 13.6 % (2-11); NEUTROPHILS 49.2 % (40-80); PLATELET COUNT 246 10x3/uL (130-400); RBC 3.14 10x6/uL (4.00-5.40); RDW 14.8 % (11.5-14.5); WBC 14.6 10x3/uL (4.8-10.8)
[2017-04-19 04:54] LABS: ANION GAP 10.5 mmol/L (8-16); CALCIUM 8.2 mg/dL (8.5-10.1); CARBON DIOXIDE 25.7 mmol/L (21.0-32.0); CREATININE - SERUM 1.2 mg/dL (0.6-1.3); POTASSIUM - SERUM 4.2 mmol/L (3.5-5.1)
[2017-04-19 07:01] LABS: MAGNESIUM - SERUM 1.6 mg/dL (1.8-2.4); PHOSPHOROUS 3.4 mg/dL (2.5-4.9)
[2017-04-19 08:14] VITALS: BP 133/68
[2017-04-19 13:11] VITALS: BP 130/64
[2017-04-19 17:27] VITALS: BP 167/76
[2017-04-19 20:00] VITALS: BP 126/68
[2017-04-20 05:05] LABS: BASOPHILS 0.5 % (0-2); EOSINOPHILS 1.2 % (0-7); HEMATOCRIT 30.1 % (36.0-48.0); HEMOGLOBIN 9.6 g/dL (12-16); IMMATURE GRANULOCYTES 18.8 % (0-5); LYMPHOCYTES 13.8 % (15-50); MCH 30.4 pg (26.0-34.0); MCHC 31.9 g/dL (31.0-37.0); MCV 95.3 fL (80.0-100.0); MEAN PLATELET VOLUME 8.9 fL (7.4-10.4); MONOCYTES 10.1 % (2-11); NEUTROPHILS 55.6 % (40-80); PLATELET COUNT 251 10x3/uL (130-400); RBC 3.16 10x6/uL (4.00-5.40); RDW 14.9 % (11.5-14.5); WBC 13.9 10x3/uL (4.8-10.8)
[2017-04-20 06:11] LABS: ALBUMIN 2.2 g/dL (3.4-5.0); ANION GAP 13.5 mmol/L (8-16); BILIRUBIN - TOTAL 0.27 mg/dL (0.2-1.3); CALCIUM 8.3 mg/dL (8.5-10.1); CREATININE - SERUM 1.1 mg/dL (0.6-1.3); MAGNESIUM - SERUM 1.7 mg/dL (1.8-2.4); POTASSIUM - SERUM 4.5 mmol/L (3.5-5.1); PROTEIN - SERUM 4.9 g/dL (6.4-8.2)
[2017-04-20 09:30] VITALS: BP 134/59
[2017-04-20 12:01] VITALS: BP 149/72
[2017-04-20 16:31] VITALS: BP 125/63
[2017-04-21 05:23] LABS: BASOPHILS 0.2 % (0-2); EOSINOPHILS 0.7 % (0-7); HEMATOCRIT 31.3 % (36.0-48.0); HEMOGLOBIN 9.9 g/dL (12-16); IMMATURE GRANULOCYTES 12.9 % (0-5); LYMPHOCYTES 14.3 % (15-50); MCH 30.3 pg (26.0-34.0); MCHC 31.6 g/dL (31.0-37.0); MCV 95.7 fL (80.0-100.0); MEAN PLATELET VOLUME 8.9 fL (7.4-10.4); NEUTROPHILS 63.9 % (40-80); PLATELET COUNT 277 10x3/uL (130-400); RBC 3.27 10x6/uL (4.00-5.40); RDW 14.9 % (11.5-14.5); WBC 11.5 10x3/uL (4.8-10.8)
[2017-04-21 06:07] LABS: ALBUMIN 2.4 g/dL (3.4-5.0); ANION GAP 9.9 mmol/L (8-16); BILIRUBIN - TOTAL 0.31 mg/dL (0.2-1.3); CALCIUM 8.3 mg/dL (8.5-10.1); CARBON DIOXIDE 26.6 mmol/L (21.0-32.0); CREATININE - SERUM 1.1 mg/dL (0.6-1.3); POTASSIUM - SERUM 4.5 mmol/L (3.5-5.1); PROTEIN - SERUM 5.3 g/dL (6.4-8.2)
[2017-04-21 08:16] VITALS: BP 136/67
[2017-04-21 12:25] VITALS: BP 123/60
[2017-04-21 16:21] VITALS: BP 113/54
[2017-04-21 20:00] VITALS: BP 136/74
[2017-04-22] VITALS: BP 148/78
[2017-04-22 04:00] VITALS: BP 154/88
[2017-04-22 05:13] LABS: BASOPHILS 0.1 % (0-2); EOSINOPHILS 1.3 % (0-7); HEMOGLOBIN 9.9 g/dL (12-16); LYMPHOCYTES 10.8 % (15-50); MCH 30.6 pg (26.0-34.0); MCHC 31.9 g/dL (31.0-37.0); MCV 95.7 fL (80.0-100.0); MEAN PLATELET VOLUME 8.9 fL (7.4-10.4); MONOCYTES 7.5 % (2-11); NEUTROPHILS 72.3 % (40-80); PLATELET COUNT 272 10x3/uL (130-400); RBC 3.24 10x6/uL (4.00-5.40); RDW 14.9 % (11.5-14.5); WBC 10.8 10x3/uL (4.8-10.8)
[2017-04-22 05:27] LABS: ALBUMIN 2.4 g/dL (3.4-5.0); ANION GAP 5.7 mmol/L (8-16); BILIRUBIN - TOTAL 0.34 mg/dL (0.2-1.3); CALCIUM 8.6 mg/dL (8.5-10.1); CREATININE - SERUM 1.1 mg/dL (0.6-1.3); POTASSIUM - SERUM 4.7 mmol/L (3.5-5.1); PROTEIN - SERUM 5.2 g/dL (6.4-8.2)
[2017-04-22] MEDS ORDERED: NYSTATIN ORAL SU5 ML PO (06:34)
[2017-04-22] MEDS ORDERED: LEVAQUIN500 MG PO (06:36)
[2017-04-22 08:05] VITALS: BP 155/80
== END 2017-04-22 11:01 | disposition home health service (06) | DRG 177 ==
LOC: D.MS 15:14
PROVIDERS: Family Medicine; Internal Medicine Pulmonary Disease
DX: J15.6 Pneumonia due to other Gram-negative bacteria (principal); J96.01 Acute respiratory failure with hypoxia; J44.1 Chronic obstructive pulmonary disease with (acute) exacerbation; J44.0 Chronic obstructive pulmonary disease with (acute) lower respiratory infection; M35.1 Other overlap syndromes; B37.0 Candidal stomatitis; J98.11 Atelectasis; J15.212 Pneumonia due to Methicillin resistant Staphylococcus aureus; E78.5 Hyperlipidemia, unspecified; E03.9 Hypothyroidism, unspecified; I25.10 Atherosclerotic heart disease of native coronary artery without angina pectoris; Z95.5 Presence of coronary angioplasty implant and graft; I12.9 Hypertensive chronic kidney disease with stage 1 through stage 4 chronic kidney disease, or unspecified chronic kidney disease; N18.9 Chronic kidney disease, unspecified; I27.20 Pulmonary hypertension, unspecified; I08.3 Combined rheumatic disorders of mitral, aortic and tricuspid valves; J02.9 Acute pharyngitis, unspecified; D72.829 Elevated white blood cell count, unspecified; D50.9 Iron deficiency anemia, unspecified

== ENCOUNTER 2017-05-30 10:17 | Emergency (ER) | payer MEDICARE, BC ==
[2017-04-15 21:49] VITALS: BMI 25.8
[~2017-05-30 10:17] MED LIST changes: +LEVAQUIN500 MG PO; +NYSTATIN ORAL SU5 ML PO
[2017-05-30 11:35] LABS: BASOPHILS 0.2 % (0-2); EOSINOPHILS 0.6 % (0-7); HEMATOCRIT 38.8 % (36.0-48.0); HEMOGLOBIN 12.2 g/dL (12-16); IMMATURE GRANULOCYTES 0.3 % (0-5); LYMPHOCYTES 8.5 % (15-50); MCH 29.4 pg (26.0-34.0); MCHC 31.4 g/dL (31.0-37.0); MCV 93.5 fL (80.0-100.0); MEAN PLATELET VOLUME 9.9 fL (7.4-10.4); MONOCYTES 8.7 % (2-11); NEUTROPHILS 81.7 % (40-80); RBC 4.15 10x6/uL (4.00-5.40); RDW 15.6 % (11.5-14.5); WBC 12.9 10x3/uL (4.8-10.8)
[2017-05-30 11:36] LABS: PLATELET COUNT 183 10x3/uL (130-400)
[2017-05-30 11:52] LABS: ALBUMIN 3.3 g/dL (3.4-5.0); ANION GAP 11.9 mmol/L (8-16); BILIRUBIN - TOTAL 0.39 mg/dL (0.2-1.3); CARBON DIOXIDE 29.3 mmol/L (21.0-32.0); CREATININE - SERUM 1.4 mg/dL (0.6-1.3); POTASSIUM - SERUM 4.2 mmol/L (3.5-5.1); PROTEIN - SERUM 6.8 g/dL (6.4-8.2)
[2017-05-30 12:10] LABS: APPEARANCE CLEAR (CLEAR); COLOR YELLOW (YELLOW); SPECIFIC GRAVITY 1.025 (1.005-1.020)
[2017-05-30 12:11] LABS: BACTERIA MODERATE /hpf (NONE SEEN); BILIRUBIN NEGATIVE (NEGATIVE); EPITHELIAL CELLS OCC /hpf (0-5); GLUCOSE NEGATIVE (NEGATIVE); KETONE NEGATIVE (NEGATIVE); NITRITE NEGATIVE (NEGATIVE); PROTEIN 1+ mg/dL (NEGATIVE); RED CELLS - URINE NONE SEEN /hpf (0-5); UROBILINOGEN NORMAL (NORMAL); WHITE CELLS - URINE OCC /hpf (0-5)
== END 2017-05-30 18:32 | disposition home or self-care (01) ==
LOC: D.ER 10:17
PROVIDERS: Emergency Medicine
DX: K57.32 Diverticulitis of large intestine without perforation or abscess without bleeding (principal); K52.9 Noninfective gastroenteritis and colitis, unspecified; J44.9 Chronic obstructive pulmonary disease, unspecified; I10 Essential (primary) hypertension

== ENCOUNTER → 2017-05-31 08:14 | Outpatient (CLI) | payer MEDICARE, BC ==
[2017-04-15 21:49] VITALS: BMI 25.8
== END | disposition home or self-care (01) ==
LOC: D.CT 08:14
DX: R10.9 Unspecified abdominal pain (principal); R12 Heartburn; K57.92 Diverticulitis of intestine, part unspecified, without perforation or abscess without bleeding; K59.00 Constipation, unspecified

== ENCOUNTER 2017-06-03 10:55 | Emergency (ER) | payer MEDICARE, BC ==
[2017-04-15 21:49] VITALS: BMI 25.8
[2017-06-03 11:35] LABS: BASOPHILS 0.2 % (0-2); EOSINOPHILS 2.5 % (0-7); HEMATOCRIT 34.5 % (36.0-48.0); HEMOGLOBIN 10.9 g/dL (12-16); IMMATURE GRANULOCYTES 0.5 % (0-5); LYMPHOCYTES 18.6 % (15-50); MCHC 31.6 g/dL (31.0-37.0); MCV 91.8 fL (80.0-100.0); MEAN PLATELET VOLUME 9.3 fL (7.4-10.4); MONOCYTES 14.8 % (2-11); NEUTROPHILS 63.4 % (40-80); PLATELET COUNT 168 10x3/uL (130-400); RBC 3.76 10x6/uL (4.00-5.40); RDW 15.4 % (11.5-14.5)
[2017-06-03 11:50] LABS: ANION GAP 12.6 mmol/L (8-16); BILIRUBIN - TOTAL 0.38 mg/dL (0.2-1.3); CALCIUM 8.7 mg/dL (8.5-10.1); CARBON DIOXIDE 26.3 mmol/L (21.0-32.0); CREATININE - SERUM 1.4 mg/dL (0.6-1.3); POTASSIUM - SERUM 3.9 mmol/L (3.5-5.1); PROTEIN - SERUM 6.1 g/dL (6.4-8.2)
== END 2017-06-03 14:26 | disposition home or self-care (01) ==
LOC: D.ER 10:55
PROVIDERS: Emergency Medicine
DX: R00.2 Palpitations (principal); J44.9 Chronic obstructive pulmonary disease, unspecified; I10 Essential (primary) hypertension; I49.3 Ventricular premature depolarization

== ENCOUNTER 2017-10-03 17:15 | Inpatient (IN) | payer MEDICARE, BC ==
[~2017-10-03] VITALS: Ht 154.9 cm; Wt 58.1 kg
--- NOTE | ~2017-10-03 | CN ---
PATIENT NAME:MINDI BOLANOS MEDICAL RECORD: [id number] : [birth year] LOCATION:D.MS [id number] ADMIT DATE: 10/03/17 ACCOUNT: [id number] CONSULTING PHYSICIAN: GILLIAN CORONADO MD REFERRING PHYSICIAN: HIEU SHEEHAN DO DATE OF CONSULTATION: 10/04/2017 Pulmonary Consultation CONSULT REQUESTING PHYSICIAN: Hieu Sheehan DO REASON FOR CONSULTATION: Bilateral lower lobe pneumonia. HISTORY OF PRESENT ILLNESS: Ms. Bolanos is an 87-year-old female who is not feeling well for the last few days. According to the patient, there was no electricity. With hot and humid, she would sit outside to have a fresh air. She developed hoarse coughing and worsening shortness of breath. She is also having some fever and chill. REVIEW OF SYSTEMS: As in history of present illness. PAST MEDICAL HISTORY: 1. Asthma. 2. Chronic obstructive pulmonary disease. 3. Hypertension. 4. Hypercholesterolemia. 5. Hypothyroidism. PAST SURGICAL HISTORY: 1. She has a cardiac catheterization and stent placement. 2. Rotator cuff surgery. 3. Cholecystectomy. ALLERGIES: SHE IS ALLERGIC TO BIAXIN, CECLOR, ERYTHROMYCIN, LEVAQUIN, PENICILLIN, QUININE, SULFA AND ZOCOR. MEDICATIONS: [employer] is reviewed. PERSONAL AND SOCIAL HISTORY: The patient is an ex-smoker. She is a nondrinker. FAMILY HISTORY: Noncontributory. PHYSICAL EXAMINATION: GENERAL: The patient is now lying comfortably in bed. She is not in acute distress. VITAL SIGNS: The blood pressure 114/56, pulse is 97, respiration is 20, temperature 99.9, SpO2 is 91% on 5 liters nasal cannula. HEENT: Conjunctivae are pink. Sclerae are not icteric. NECK: Supple, no JVD. CHEST: There are bilateral crackles. Wheeze on forceful expiration. HEART: Rhythm regular, normal sound, no murmur. ABDOMEN: Abdomen is soft, bowel sounds present. No hepatosplenomegaly. RECTAL: Deferred. EXTREMITIES: No cyanosis, no clubbing, no pedal edema. SKIN: The skin is warm, normal turgor. CONSULT REPORT [id number] KOSTA BOLANOSNE CENTRAL NERVOUS SYSTEM: The patient is awake and alert. There are no obvious cranial nerve abnormality. The gait was not tested. CHEST RADIOGRAPH: There are bilateral lower lobe infiltrate. OTHER LABORATORY DATA: CBC: The WBC is 12.4, hemoglobin 10.8, hematocrit 34, platelet count 182. Chemistry: Sodium is 139, potassium 4.2, BUN is 23, creatinine 1.4. ABG: The pH is 7.43, pCO2 is 39.6, the pO2 is 67, and bicarb is 26.6. IMPRESSION: 1. Acute exacerbation of chronic obstructive pulmonary disease. 2. Acute hypoxic respiratory failure. 3. Asthma-chronic obstructive pulmonary disease overlap syndrome. 4. Bilateral lower lobe pneumonia, most likely community-acquired pneumonia. 5. Leukocytosis. 6. Allergic rhinitis. RECOMMENDATIONS: 1. Continue Rocephin. 2. Continue Zithromax. 3. Albuterol and ipratropium nebulizer, Brovana and budesonide nebulizer. 4. Mucinex DM. 5. [place]. 6. Start methylprednisolone IV at small doses. 7. Follow up labs and chest radiograph. Dr. Sheehan, thank you for involving me in the care of Ms. Bolanos. TRANSINT:[id number] Voice Confirmation ID: [id number] DOCUMENT ID: [id number] GILLIAN CORONADO MD at 1218 CC: HIEU SHEEHAN DO [id number] DICTATION DATE: 10/04/171824 GEOTECHNICIAN: 10/04/171911 ADM IN [facility] [address] [id number]
[2017-10-03] MEDS ORDERED: FUROSEMIDE20 MG PO (17:27)
[2017-10-03 18:07] LABS: BASOPHILS 0.2 % (0-2); EOSINOPHILS 1.1 % (0-7); HEMOGLOBIN 10.8 g/dL (12-16); IMMATURE GRANULOCYTES 0.3 % (0-5); LYMPHOCYTES 17.5 % (15-50); MCH 30.2 pg (26.0-34.0); MCHC 31.8 g/dL (31.0-37.0); MEAN PLATELET VOLUME 10.2 fL (7.4-10.4); MONOCYTES 12.2 % (2-11); NEUTROPHILS 68.7 % (40-80); PLATELET COUNT 182 10x3/uL (130-400); RBC 3.58 10x6/uL (4.00-5.40); WBC 12.4 10x3/uL (4.8-10.8)
[2017-10-03 18:14] LABS: INR 1.17 (0.85-1.17); PROTIME 14.5 SECONDS (11.6-15.0)
[2017-10-03 18:16] LABS: D-DIMER-QUANTITATIVE 0.64 ug/mLFEU (0.20-0.54)
[2017-10-03 18:19] LABS: ALKALINE PHOSPHATASE 195 U/L (46-116); ALT (SGPT) 82 U/L (10-68); CALC OSMOLALITY 278 mosm/kg (275-300); CALCIUM 8.8 mg/dL (8.5-10.1); CHLORIDE - SERUM 102 mmol/L (98-107); CREATININE - SERUM 1.4 mg/dL (0.6-1.3); GLUCOSE 109 mg/dL (74-106); POTASSIUM - SERUM 4.8 mmol/L (3.5-5.1); PROTEIN - SERUM 6.7 g/dL (6.4-8.2); SODIUM 137 mmol/L (136-145); UREA NITROGEN 25 mg/dL (7-18); eGFR NON AFRICAN AMERICAN 38 mL/min (90-120)
[2017-10-03 18:31] LABS: CKMB 2.4 U/L (0.0-3.6); CREATINE KINASE 199 UL (21-215); TROPONIN-I < 0.017 ng/mL (0.000-0.060)
[2017-10-03 19:04] LABS: APPEARANCE CLEAR (CLEAR); BILIRUBIN NEGATIVE (NEGATIVE); COLOR STRAW (YELLOW); GLUCOSE NEGATIVE (NEGATIVE); KETONE NEGATIVE (NEGATIVE); NITRITE NEGATIVE (NEGATIVE); PROTEIN NEGATIVE (NEGATIVE); SPECIFIC GRAVITY 1.005 (1.005-1.020); UROBILINOGEN NORMAL (NORMAL)
[2017-10-03 19:06] LABS: BACTERIA FEW /hpf (NONE SEEN)
[2017-10-03 19:32] VITALS: BP 142/51
[2017-10-03 20:44] VITALS: BP 118/67
[2017-10-03 21:20] VITALS: BP 112/74
[2017-10-03 22:22] VITALS: BP 110/82
[2017-10-04] VITALS (8 sets, daily range): BP systolic 114–149; BP diastolic 44–76; Ht 154.9 cm; Wt 58.1 kg
[2017-10-04 04:06] LABS: BASOPHILS 0.3 % (0-2); EOSINOPHILS 1.5 % (0-7); HEMATOCRIT 30.5 % (36.0-48.0); HEMOGLOBIN 9.8 g/dL (12-16); IMMATURE GRANULOCYTES 0.4 % (0-5); MCH 30.2 pg (26.0-34.0); MCHC 32.1 g/dL (31.0-37.0); MCV 94.1 fL (80.0-100.0); MEAN PLATELET VOLUME 9.7 fL (7.4-10.4); MONOCYTES 10.7 % (2-11); NEUTROPHILS 67.1 % (40-80); PLATELET COUNT 146 10x3/uL (130-400); RBC 3.24 10x6/uL (4.00-5.40); WBC 11.7 10x3/uL (4.8-10.8)
[2017-10-04 04:21] LABS: ANION GAP 8.3 mmol/L (8-16); CALCIUM 8.5 mg/dL (8.5-10.1); CARBON DIOXIDE 29.9 mmol/L (21.0-32.0); CREATININE - SERUM 1.4 mg/dL (0.6-1.3); POTASSIUM - SERUM 4.2 mmol/L (3.5-5.1)
[2017-10-05 04:20] VITALS: BP 117/56
[2017-10-05 06:57] LABS: BASOPHILS 0 % (0-2); EOSINOPHILS 0.1 % (0-7); HEMATOCRIT 32.6 % (36.0-48.0); HEMOGLOBIN 10.3 g/dL (12-16); IMMATURE GRANULOCYTES 0.7 % (0-5); LYMPHOCYTES 12.7 % (15-50); MCH 29.9 pg (26.0-34.0); MCHC 31.6 g/dL (31.0-37.0); MCV 94.8 fL (80.0-100.0); MEAN PLATELET VOLUME 10.5 fL (7.4-10.4); MONOCYTES 3.6 % (2-11); NEUTROPHILS 82.9 % (40-80); RBC 3.44 10x6/uL (4.00-5.40); RDW 14.3 % (11.5-14.5); WBC 10.7 10x3/uL (4.8-10.8)
[2017-10-05 07:00] LABS: PLATELET COUNT 182 10x3/uL (130-400)
[2017-10-05 07:27] LABS: ALBUMIN 2.4 g/dL (3.4-5.0); ANION GAP 10.4 mmol/L (8-16); BILIRUBIN - TOTAL 0.2 mg/dL (0.2-1.3); CALCIUM 8.8 mg/dL (8.5-10.1); CARBON DIOXIDE 31.5 mmol/L (21.0-32.0); CREATININE - SERUM 1.3 mg/dL (0.6-1.3); MAGNESIUM - SERUM 1.8 mg/dL (1.8-2.4); PHOSPHOROUS 4.3 mg/dL (2.5-4.9)
[2017-10-05 07:29] LABS: POTASSIUM - SERUM 4.9 mmol/L (3.5-5.1)
[2017-10-05 09:08] VITALS: BP 116/65
[2017-10-05 11:45] VITALS: BP 119/53
[2017-10-05 15:36] VITALS: BP 123/52
[2017-10-05 21:24] VITALS: BP 122/54
[2017-10-06 04:01] VITALS: BP 137/51
[2017-10-06 04:30] LABS: BASOPHILS 0.2 % (0-2); EOSINOPHILS 0 % (0-7); HEMATOCRIT 30.5 % (36.0-48.0); HEMOGLOBIN 9.7 g/dL (12-16); IMMATURE GRANULOCYTES 1.2 % (0-5); LYMPHOCYTES 14.4 % (15-50); MCH 29.9 pg (26.0-34.0); MCHC 31.8 g/dL (31.0-37.0); MCV 94.1 fL (80.0-100.0); MEAN PLATELET VOLUME 10.4 fL (7.4-10.4); MONOCYTES 10.8 % (2-11); NEUTROPHILS 73.4 % (40-80); PLATELET COUNT 207 10x3/uL (130-400); RBC 3.24 10x6/uL (4.00-5.40); RDW 13.8 % (11.5-14.5); WBC 11.1 10x3/uL (4.8-10.8)
[2017-10-06 04:55] LABS: ALBUMIN 2.5 g/dL (3.4-5.0); ANION GAP 8.4 mmol/L (8-16); CALCIUM 8.7 mg/dL (8.5-10.1); CARBON DIOXIDE 31.4 mmol/L (21.0-32.0); CREATININE - SERUM 1.1 mg/dL (0.6-1.3); POTASSIUM - SERUM 4.8 mmol/L (3.5-5.1); PROTEIN - SERUM 6.1 g/dL (6.4-8.2)
[2017-10-06 04:57] LABS: BILIRUBIN - TOTAL 0.09 mg/dL (0.2-1.3)
[2017-10-06 08:32] VITALS: BP 147/66
[2017-10-06 12:25] VITALS: BP 131/71
[2017-10-06 15:51] VITALS: BP 100/46
[2017-10-06 20:00] VITALS: BP 126/71
[2017-10-06 23:49] VITALS: BP 110/52
[2017-10-07 04:00] VITALS: BP 120/45
[2017-10-07 04:30] LABS: BASOPHILS 0.5 % (0-2); EOSINOPHILS 0.1 % (0-7); HEMATOCRIT 31.9 % (36.0-48.0); HEMOGLOBIN 10.1 g/dL (12-16); IMMATURE GRANULOCYTES 5.2 % (0-5); LYMPHOCYTES 20.5 % (15-50); MCH 30.1 pg (26.0-34.0); MCHC 31.7 g/dL (31.0-37.0); MCV 95.2 fL (80.0-100.0); MEAN PLATELET VOLUME 9.9 fL (7.4-10.4); MONOCYTES 8.2 % (2-11); NEUTROPHILS 65.5 % (40-80); PLATELET COUNT 242 10x3/uL (130-400); RBC 3.35 10x6/uL (4.00-5.40); RDW 14.2 % (11.5-14.5); WBC 10.2 10x3/uL (4.8-10.8)
[2017-10-07 04:55] LABS: ALBUMIN 2.5 g/dL (3.4-5.0); ANION GAP 9.3 mmol/L (8-16); BILIRUBIN - TOTAL 0.11 mg/dL (0.2-1.3); CALCIUM 8.5 mg/dL (8.5-10.1); CARBON DIOXIDE 32.4 mmol/L (21.0-32.0); CREATININE - SERUM 1.1 mg/dL (0.6-1.3); POTASSIUM - SERUM 4.7 mmol/L (3.5-5.1); PROTEIN - SERUM 5.8 g/dL (6.4-8.2)
[2017-10-07 08:25] VITALS: BP 122/71
[2017-10-07 12:38] VITALS: BP 107/53
[2017-10-07 16:20] VITALS: BP 111/57
[2017-10-07 19:43] VITALS: BP 107/54
[2017-10-08] VITALS: BP 107/47
[2017-10-08 04:00] VITALS: BP 106/61
[2017-10-08] MEDS ORDERED: STERAPRED 5MG 65 M1 PO (07:35)
[2017-10-08] MEDS ORDERED: CEFUROXIME250 MG PO (07:36)
[2017-10-08 07:39] LABS: EOSINOPHILS 0.2 % (0-7); HEMATOCRIT 34.5 % (36.0-48.0); HEMOGLOBIN 10.7 g/dL (12-16); IMMATURE GRANULOCYTES 11.1 % (0-5); LYMPHOCYTES 27.8 % (15-50); MCV 96.6 fL (80.0-100.0); MEAN PLATELET VOLUME 9.8 fL (7.4-10.4); MONOCYTES 11.1 % (2-11); NEUTROPHILS 48.8 % (40-80); PLATELET COUNT 256 10x3/uL (130-400); RBC 3.57 10x6/uL (4.00-5.40); RDW 14.4 % (11.5-14.5)
[2017-10-08 08:17] VITALS: BP 144/54
[2017-10-08 08:23] LABS: ALBUMIN 2.6 g/dL (3.4-5.0); ANION GAP 8.5 mmol/L (8-16); BILIRUBIN - TOTAL 0.11 mg/dL (0.2-1.3); CALCIUM 8.8 mg/dL (8.5-10.1); CARBON DIOXIDE 33.6 mmol/L (21.0-32.0); CREATININE - SERUM 1.1 mg/dL (0.6-1.3); POTASSIUM - SERUM 5.1 mmol/L (3.5-5.1); PROTEIN - SERUM 6.1 g/dL (6.4-8.2)
== END 2017-10-08 10:10 | disposition home or self-care (01) | DRG 193 ==
LOC: D.ER 17:15 → D.EDHOLD 20:26 → D.MS 20:26
PROVIDERS: Emergency Medicine; Family Medicine
DX: J18.9 Pneumonia, unspecified organism (principal); J96.01 Acute respiratory failure with hypoxia; J44.0 Chronic obstructive pulmonary disease with (acute) lower respiratory infection; M35.1 Other overlap syndromes; R13.10 Dysphagia, unspecified

== ENCOUNTER → 2018-02-07 09:45 | Outpatient (CLI) | payer MEDICARE, BC ==
[2017-10-04 12:58] VITALS: BMI 24.1
[~2018-02-07 09:45] MED LIST changes: +CEFUROXIME250 MG PO; +FUROSEMIDE20 MG PO; +STERAPRED 5MG 65 M1 PO
== END | disposition home or self-care (01) ==
LOC: D.RAD 09:45
DX: J18.9 Pneumonia, unspecified organism (principal)